=== PATIENT | female | born 1965 | race Two or more races ===

== ENCOUNTER 2017-07-10 12:30 | Inpatient (IN) | payer MEDICAID ==
[~2017-07-10] VITALS: Ht 175.3 cm; Wt 90.7 kg
[2017-07-10] MEDS ORDERED: IV NS 0.9% 1,000 ML BAG IV ONE (14:30)
[2017-07-10] MEDS ORDERED: ONDANSETRON HCL/PF 4 MG/2 ML VIAL IVP ONE (14:30)
[2017-07-10] MEDS ORDERED: ALPRAZOLAM 0.5 MG TABLET ONE (14:38)
[2017-07-10] MEDS ORDERED: ONDANSETRON HCL/PF 4 MG/2 ML VIAL ONE (14:38)
[2017-07-10 14:44] LABS: BASOPHILS % (AUTO) 0.4 % (0.0-2.0); EOSINOPHILS # (AUTO) 0.1 /CMM (0.0-0.7); HEMATOCRIT 38 % (33-45); HEMOGLOBIN 12.8 g/dL (11.5-14.8); LYMPHOCYTES # (AUTO) 1.1 /CMM (0.8-4.8); LYMPHOCYTES % (AUTO) 17.5 % (20.0-44.0); MEAN CORPUSCULAR HEMOGLOBIN 26 PG (26.0-33.0); MEAN CORPUSCULAR HGB CONC 34 g/dl (31.0-36.0); MEAN CORPUSCULAR VOLUME 77 fL (82-100); MONOCYTES # (AUTO) 0.2 /CMM (0.1-1.30); MONOCYTES % (AUTO) 3.3 % (2.0-12.0); NEUTROPHILS # (AUTO) 5.2 /CMM (1.8-8.9); NEUTROPHILS % (AUTO) 76.8 % (43.0-81.0); PLATELET COUNT (AUTO) 291 /CMM (150-450); RDW COEFFICIENT OF VARIATION 17.4 (11.5-15.0); RED BLOOD CELL COUNT(AUTO) 4.95 MIL/uL (4.0-5.2); WHITE BLOOD COUNT (AUTO) 6.6 K/uL (4.3-11.0)
[2017-07-10] MEDS ORDERED: ALPRAZOLAM 0.5 MG TABLET PO ONE (15:00)
[2017-07-10 15:02] LABS: CALCIUM, SERUM 9.9 mg/dL (8.5-10.1); CARBON DIOXIDE 27 mmol/L (21-32); CHLORIDE 106 mmol/L (98-107); CREATININE 0.8 mg/dL (0.6-1.3); GLUCOSE 114 mg/dL (74-106); POTASSIUM 3.8 mmol/L (3.5-5.1); SODIUM SERUM 143 mmol/L (136-145); UREA NITROGEN, BLOOD 7 mg/dL (7-18)
[2017-07-10 15:06] LABS: INR 0.95 (0.85-1.15)
[2017-07-10 15:07] LABS: ALANINE AMINOTRANSFERASE 47 U/L (12-78); ALBUMIN 3.7 g/dL (3.4-5.0); ALKALINE PHOSPHATASE 92 U/L (46-116); ASPARTATE AMINOTRANSFERASE 30 U/L (15-37); BILIRUBIN,DIRECT 0.2 mg/dL (0.0-0.2); BILIRUBIN,TOTAL 1.2 mg/dL (0.2-1.0); TOTAL PROTEIN, SERUM 8.3 g/dL (6.4-8.2)
[2017-07-10 15:09] LABS: TROPONIN I < 0.017 ng/mL (0.00-0.056)
[2017-07-10 15:46] LABS: ABG BASE EXCESS -0.4 mmol/L; ABG OXYGEN SATURATION 95.7 % (92.0-98.5); ABG PCO2 28.7 mmHg (35.0-45.0); ABG PH 7.498 (7.350-7.450); ABG PO2 80.2 mmHg (75.0-100.0); AaDO2 35.2 mmHg; COHb 0.6 % (0.5-1.5); MetHb 0.4 % (0.0-1.5); O2Hb 94.7 % (94.0-97.0); SITE, ABG Right Radial; VENT MODE, BG RA
[2017-07-10] MEDS ORDERED: IV NS 0.9% 250 ML IV ONE ×2 (16:35→16:51)
[2017-07-10] MEDS ORDERED: IOHEXOL-350 100 ML VIAL IV ONE ×2 (16:35→16:51)
[2017-07-10] MEDS ORDERED: ENOXAPARIN SODIUM 30 MG/0.3 ML DISP.SYRIN SQ ONE (18:00)
[2017-07-10] MEDS ORDERED: ONDANSETRON HCL/PF 4 MG/2 ML VIAL IVP PRN (19:30)
[2017-07-10] MEDS ORDERED: ACETAMINOPHEN 325 MG TABLET PO PRN (19:30)
[2017-07-10] MEDS ORDERED: Z GUARD REMEDY 2 OZ OINT TP PRN (19:30)
[2017-07-10] MEDS ORDERED: MORPHINE SULFATE INJ 4 MG/ML DISP.SYRIN IV PRN (19:30)
[2017-07-10] MEDS ORDERED: MAGNESIUM HYDROXIDE 30 ML UDC PO PRN (19:30)
[2017-07-10] MEDS ORDERED: HYDROCODONE/APAP 5/325MG 1 EACH TABLET PO PRN (19:30)
[2017-07-10] MEDS ORDERED: ZOLPIDEM TARTRATE 5 MG TABLET PO PRN (19:30)
[2017-07-10 20:00] VITALS: BP 145/81
[2017-07-10] MEDS ORDERED: IBUPROFEN 600 MG TABLET PO PRN (20:00)
[2017-07-10] MEDS ORDERED: IBUP-1955 PO (21:13)
[2017-07-10] MEDS ORDERED: METO50TA16 PO (21:13)
[2017-07-10] MEDS ORDERED: HYDR25TA4 PO (21:13)
[2017-07-10] MEDS ORDERED: AMLO10TA2 PO (21:13)
[2017-07-10] MEDS ORDERED: ASPI-605 PO (21:13)
[2017-07-11] VITALS: BP 129/74
[2017-07-11 04:00] VITALS: BP 127/88
[2017-07-11 06:52] LABS: BASOPHILS % (AUTO) 0.7 % (0.0-2.0); EOSINOPHILS # (AUTO) 0.2 /CMM (0.0-0.7); HEMATOCRIT 36 % (33-45); LYMPHOCYTES # (AUTO) 1.5 /CMM (0.8-4.8); LYMPHOCYTES % (AUTO) 27.6 % (20.0-44.0); MEAN CORPUSCULAR HEMOGLOBIN 26 PG (26.0-33.0); MEAN CORPUSCULAR HGB CONC 34 g/dl (31.0-36.0); MEAN CORPUSCULAR VOLUME 78 fL (82-100); MONOCYTES # (AUTO) 0.3 /CMM (0.1-1.30); MONOCYTES % (AUTO) 5.8 % (2.0-12.0); NEUTROPHILS # (AUTO) 3.4 /CMM (1.8-8.9); NEUTROPHILS % (AUTO) 62.9 % (43.0-81.0); PLATELET COUNT (AUTO) 245 /CMM (150-450); RDW COEFFICIENT OF VARIATION 19.1 (11.5-15.0); RED BLOOD CELL COUNT(AUTO) 4.56 MIL/uL (4.0-5.2); WHITE BLOOD COUNT (AUTO) 5.4 K/uL (4.3-11.0)
[2017-07-11 07:17] LABS: CREATININE 0.9 mg/dL (0.6-1.3); MAGNESIUM 2.1 mg/dL (1.8-2.4); PHOSPHORUS 5.1 mg/dL (2.5-4.9); POTASSIUM 3.5 mmol/L (3.5-5.1)
[2017-07-11 08:00] VITALS: BP 118/82
[2017-07-11] MEDS: ENOXAPARIN SODIUM 100 MG/ML DISP.SYRIN SQ SCH ×2 (08:25→21:41)
[2017-07-11] MEDS: LORAZEPAM 1 MG TABLET PO PRN ×2 (08:26→19:55)
[2017-07-11 12:00] VITALS: BP 126/76
[2017-07-11] MEDS: ALPRAZOLAM 0.25 MG TABLET PO PRN ×2 (12:57→21:39)
[2017-07-11 16:00] VITALS: BP 122/75
[2017-07-11 20:00] VITALS: BP_SYST 152; BP_SYST 158; BP_DIAS 84
[2017-07-11] MEDS: ATORVASTATIN 10 MG TABLET PO SCH (21:39)
[2017-07-12] VITALS: BP 112/74
[2017-07-12 04:00] VITALS: BP 118/76
[2017-07-12 06:33] LABS: BASOPHILS % (AUTO) 0.5 % (0.0-2.0); EOSINOPHILS # (AUTO) 0.1 /CMM (0.0-0.7); EOSINOPHILS % (AUTO) 2.9 % (0.0-6.0); HEMATOCRIT 36 % (33-45); HEMOGLOBIN 12.1 g/dL (11.5-14.8); LYMPHOCYTES # (AUTO) 1.4 /CMM (0.8-4.8); LYMPHOCYTES % (AUTO) 28.3 % (20.0-44.0); MEAN CORPUSCULAR HEMOGLOBIN 26 PG (26.0-33.0); MEAN CORPUSCULAR HGB CONC 34 g/dl (31.0-36.0); MEAN CORPUSCULAR VOLUME 78 fL (82-100); MONOCYTES # (AUTO) 0.3 /CMM (0.1-1.30); MONOCYTES % (AUTO) 6.1 % (2.0-12.0); NEUTROPHILS # (AUTO) 3.1 /CMM (1.8-8.9); NEUTROPHILS % (AUTO) 62.2 % (43.0-81.0); PLATELET COUNT (AUTO) 222 /CMM (150-450); RDW COEFFICIENT OF VARIATION 17.9 (11.5-15.0); RED BLOOD CELL COUNT(AUTO) 4.57 MIL/uL (4.0-5.2)
[2017-07-12 06:37] LABS: CREATININE 0.8 mg/dL (0.6-1.3); PHOSPHORUS 4.7 mg/dL (2.5-4.9); POTASSIUM 3.5 mmol/L (3.5-5.1)
[2017-07-12 08:00] VITALS: BP 120/70
[2017-07-12] MEDS: LORAZEPAM 1 MG TABLET PO PRN ×2 (08:19→18:27)
[2017-07-12] MEDS: ASPIRIN 81 MG TAB.CHEW PO SCH (08:19)
[2017-07-12] MEDS: ENOXAPARIN SODIUM 100 MG/ML DISP.SYRIN SQ SCH (08:22)
[2017-07-12 16:00] VITALS: BP 124/83
[2017-07-12 20:00] VITALS: BP 144/88
[2017-07-12] MEDS: RIVAROXABAN 15 MG TABLET PO SCH (21:49)
[2017-07-12] MEDS: ATORVASTATIN 10 MG TABLET PO SCH (21:50)
[2017-07-13] MEDS: LORAZEPAM 1 MG TABLET PO PRN ×3 (06:50→20:55)
[2017-07-13 08:00] VITALS: BP 125/69
[2017-07-13] MEDS: ASPIRIN 81 MG TAB.CHEW PO SCH (08:16)
[2017-07-13] MEDS: RIVAROXABAN 15 MG TABLET PO SCH ×2 (08:16→20:57)
[2017-07-13 16:00] VITALS: BP 111/66
[2017-07-13 20:00] VITALS: BP 126/88
[2017-07-13] MEDS: ATORVASTATIN 10 MG TABLET PO SCH (21:41)
[2017-07-13] MEDS ORDERED: MIRTAZAPINE 15 MG TABLET PO SCH (22:00)
[2017-07-14 08:00] VITALS: BP 108/76
[2017-07-14] MEDS: ASPIRIN 81 MG TAB.CHEW PO SCH (09:00)
[2017-07-14] MEDS ORDERED: ATOR10TA PO (09:52)
[2017-07-14] MEDS ORDERED: ALPR0.255 PO (09:52)
[2017-07-14] MEDS ORDERED: MIRT15TA PO (09:52)
[2017-07-14] MEDS ORDERED: Rivaroxaban PO (09:52)
[2017-07-14] MEDS: RIVAROXABAN 15 MG TABLET PO SCH (09:59)
[2017-07-14] MEDS: LORAZEPAM 1 MG TABLET PO PRN (13:05)
[2017-07-14 16:00] VITALS: BP 135/78
== END 2017-07-14 15:45 | disposition home or self-care (01) | DRG 134 ==
LOC: ER 12:32 → TELE 18:48 → MED 07-12 08:54
PROVIDERS: ADMIT Nurse Practitioner Acute Care; ATTEND Nurse Practitioner Acute Care
DX: I26.99 Other pulmonary embolism without acute cor pulmonale (principal); R45.851 Suicidal ideations; I10 Essential (primary) hypertension; F41.9 Anxiety disorder, unspecified; R06.03 Acute respiratory distress; Z86.711 Personal history of pulmonary embolism; Z86.718 Personal history of other venous thrombosis and embolism; Z90.710 Acquired absence of both cervix and uterus; F41.0 Panic disorder [episodic paroxysmal anxiety]; R55 Syncope and collapse; F33.1 Major depressive disorder, recurrent, moderate
CPT/HCPCS: 36415; 36600; 70450-TC; 71045-TC; 80048-TC; 80061-TC; 80076-TC; 82803-TC; 82962-TC; 83735-TC; 84100-TC; 84484-TC; 85025-TC; 85730-TC; 87081-TC; 93307-TC; 93880-TC; 93970-TC; 97110-TC; 97116-TC; 97530-TC; A4606; J1650; J2405; J7030; J7050; Q9967; Z7610